=== PATIENT | female | born 1940 | race Caucasian/White ===

== ENCOUNTER 2017-08-29 12:26 | Observation (INO) | payer MEDICARE ==
[~2017-08-29] VITALS: Ht 157.5 cm; Wt 67.2 kg
[2017-08-29 12:32] VITALS: BP 194/97; PULSE 65; RESP 20; TEMP 97.7; O2SAT 98
[2017-08-29] MEDS ORDERED: PRED1 PO (12:43)
[2017-08-29] MEDS ORDERED: LEVO75TA3 PO (12:43)
[2017-08-29 12:53] VITALS: RESP 19; O2SAT 97
[2017-08-29] MEDS ORDERED: ASPIRIN 325 MG TAB PO ONE (13:00)
[2017-08-29] MEDS ORDERED: SODIUM CHLORIDE 0.9% FLUSH 10 ML FLUSH IVF PRN (13:00)
[2017-08-29 13:10] LABS: BASOPHIL # 0.1 TH/MM3 (0-0.2); BASOPHIL % 0.5 % (0.0-2.0); EOSINOPHIL # 0.4 TH/MM3 (0-0.4); EOSINOPHIL % 2.8 % (0.0-4.0); HEMATOCRIT 41.2 % (35.0-46.0); HEMOGLOBIN 13.7 GM/DL (11.6-15.3); LYMPH % 50.9 % (9.0-44.0); LYMPHOCYTE # 7.3 TH/MM3 (1.0-4.8); MEAN CELL VOLUME 82.4 FL (80.0-100.0); MEAN CORPUSCULAR HEMOGLOBIN 27.4 PG (27.0-34.0); MEAN CORPUSCULAR HGB CONC 33.3 % (32.0-36.0); MEAN PLATELET VOLUME 7.1 FL (7.0-11.0); MONO % 4.2 % (0.0-8.0); MONOCYTE # 0.6 TH/MM3 (0-0.9); NEUT % 41.6 % (16.0-70.0); PLATELET COUNT 240 TH/MM3 (150-450); RED CELL DISTRIBUTION WIDTH 13.9 % (11.6-17.2); WHITE BLOOD COUNT 14.4 TH/MM3 (4.0-11.0)
[2017-08-29 13:22] LABS: D-DIMER 0.37 MG/L FEU (0.00-0.50); PROTHROMBIN TIME - PATIENT 9.9 SEC (9.8-11.6)
[2017-08-29 13:35] LABS: ALBUMIN 3.8 GM/DL (3.4-5.0); ALT (GPT) 30 U/L (10-53); AST (GOT) 14 U/L (15-37); BICARBONATE 26.2 MEQ/L (21.0-32.0); BLOOD UREA NITROGEN 14 MG/DL (7-18); CALCIUM 8.1 MG/DL (8.5-10.1); CHLORIDE 109 MEQ/L (98-107); CREATININE 0.69 MG/DL (0.50-1.00); GLOMERULAR FILTRATION RATE 82 ML/MIN (>89); GLUCOSE,RANDOM 134 MG/DL (74-106); MAGNESIUM 2.1 MG/DL (1.5-2.5); SODIUM (NA) 142 MEQ/L (136-145)
[2017-08-29 13:37] LABS: LYMPHOCYTES 60 % (9-44); NEUTROPHIL # MANUAL DIFF 5.5 TH/MM3 (1.8-7.7); POLYS (SEG NEUTROPHILS) 38 % (16-70)
[2017-08-29 13:39] LABS: ALKALINE PHOSPHATASE 69 U/L (45-117); SMUDGE CELLS PRESENT PRESENT; TOTAL BILIRUBIN ADULT 0.5 MG/DL (0.2-1.0); TOTAL PROTEIN 6.8 GM/DL (6.4-8.2); TROPONIN I LESS THAN 0.02 NG/ML (0.02-0.05)
--- NOTE | 2017-08-29 13:39 | RADRPT ---
EXAM DATE/TIME: 08/29/2017 13:02 [facility] COMPARISON: No previous studies available for comparison. INDICATIONS : Chest pains with pressure left chest. MEDICAL HISTORY : Myocardial infarction. SURGICAL HISTORY : Coronary artery stent. ENCOUNTER: Initial ACUITY: 1 day PAIN SCORE: 9/10 LOCATION: Left chest FINDINGS: A single view of the chest demonstrates the lungs to be symmetrically aerated without evidence of mas s, infiltrate or effusion. The cardiomediastinal contours are unremarkable. Osseous structures are intact. CONCLUSION: No acute disease. Micky Howell MD FACR on August 29, 2017 at 13:37 Board Certified Radiologist. This report was verified electronically.
--- NOTE | 2017-08-29 13:40 | PD ---
HPI Chief Complaint: Chest Pain Time Seen by Provider: 12:38 Travel History International Travel<30 days: No Contact w/Intl Traveler<30days: No Traveled to known affect area: No History of Present Illness HPI 77-year-old female that presents to the ED for evaluation of right upper chest pain that she has had for the past 3 days. Per patient he feels like a pressure and comes and goes. Per patient he feels, like a spasm. Per patient she had this about 12 years ago and was diagnosed with a spasm and he feels somewhat similar but not completely. Per patient last time he went away. Per patient she is recently been treated for allergic rash from possible poison marion with prednisone and she has never had the prednisone before. Per patient is been feeling weird for the past 3 days. She cannot really tell me what she means by this other than she does not feel 100%. She does feel some shortness of breath when the pain gets severe but the pain only lasts a couple of minutes and then it goes away. She does tell me she has never had a stress test. She does not have a legal support assistant. She has a history of smoking. History of high blood pressure or cholesterol. She does have a history of thyroid disease. She tells me that for the most part she does not really take much medications as she prefers not to take anything. She currently states that she has no pain. Per patient he does feel like a burning sensation cannot like GERD except on the right side of the chest rather tender on the epigastric area where she usually gets it. No recent travel. No estrogen use. No recent surgeries. Has not seen anybody for this and her doctor actually told her to come here to get evaluated. Pain when he comes is 6 out of 10. PFSH Past Medical History Cardiovascular Problems: Yes Diminished Hearing: No Thyroid Disease: Yes Past Surgical History Cholecystectomy: Yes Gynecologic Surgery: Yes (LUMPECTOMY LEFT BREAST) Hysterectomy: Yes Social History Alcohol Use: Yes (OCCAISIONAL) Tobacco Use: No Substance Use: No Allergies-Medications (Allergen,Severity, Reaction): Coded Allergies: No Known Allergies (Verified , 03/30/15) Reported Meds & Prescriptions Reported Meds & Active Scripts Active Reported Levothyroxine (Levothyroxine Sodium) 75 Mcg Tab 75 Mcg PO DAILY Prednisone 1 Mg Tab 1 Mg PO DAILY Review of Systems Except as stated in HPI: all other systems reviewed are Neg Physical Exam Narrative GENERAL: SKIN: Warm and dry. HEAD: Atraumatic. Normocephalic. EYES: Pupils equal and round. No scleral icterus. No injection or drainage. ENT: No nasal bleeding or discharge. Mucous membranes pink and moist. Tongue is midline. No uvula deviation. NECK: Trachea midline. No JVD. CARDIOVASCULAR: Regular rate and rhythm. No murmurs, S3, S4. RESPIRATORY: No accessory muscle use. Clear to auscultation. Breath sounds equal bilaterally. GASTROINTESTINAL: Abdomen soft, non-tender, nondistended. Hepatic and splenic margins not palpable. MUSCULOSKELETAL: Extremities without clubbing, cyanosis, or edema. No obvious deformities. Full range of motion of the upper and lower extremities bilaterally. 2+ pulses bilaterally. NEUROLOGICAL: Awake and alert. No obvious cranial nerve deficits. Motor grossly within normal limits. Five out of 5 muscle strength in the arms and legs. Normal speech. PSYCHIATRIC: Appropriate mood and affect; insight and judgment normal. Data Data Last Documented VS Vital Signs Date Time Temp Pulse Resp B/P (MAP) Pulse Ox O2 Delivery O2 Flow Rate FiO2 08/29/17 12:53 19 97 Room Air 08/29/17 12:32 97.7 65 194/97 (129) Orders Orders Electrocardiogram (08/29/17 12:51) Ckmb (Isoenzyme) Profile (08/29/17 12:51) Complete Blood Count With Diff (08/29/17 12:51) Comprehensive Metabolic Panel (08/29/17 12:51) D-Dimer (08/29/17 12:51) Magnesium (Mg) (08/29/17 12:51) Prothrombin Time / Inr (Pt) (08/29/17 12:51) Act Partial Throm Time (Ptt) (08/29/17 12:51) Troponin I (08/29/17 12:51) Lipase (08/29/17 12:51) Chest, Single Ap (08/29/17 12:51) Ecg Monitoring (08/29/17 12:51) Bilateral Bp Monitoring (08/29/17 12:51) Iv Access Insert/Monitor (08/29/17 12:51) Oximetry (08/29/17 12:51) Aspirin (Aspirin) (08/29/17 13:00) Sodium Chloride 0.9% Flush (Ns Flush) (08/29/17 13:00) Admit Order (Ed Use Only) (08/29/17 14:20) Labs Laboratory Tests Test 08/29/17 12:55 White Blood Count 14.4 TH/MM3 Red Blood Count 5.00 MIL/MM3 Hemoglobin 13.7 GM/DL Hematocrit 41.2 % Mean Corpuscular Volume 82.4 FL Mean Corpuscular Hemoglobin 27.4 PG Mean Corpuscular Hemoglobin Concent 33.3 % Red Cell Distribution Width 13.9 % Platelet Count 240 TH/MM3 Mean Platelet Volume 7.1 FL Neutrophils (%) (Auto) 41.6 % Lymphocytes (%) (Auto) 50.9 % Monocytes (%) (Auto) 4.2 % Eosinophils (%) (Auto) 2.8 % Basophils (%) (Auto) 0.5 % Neutrophils # (Auto) 6.0 TH/MM3 Lymphocytes # (Auto) 7.3 TH/MM3 Monocytes # (Auto) 0.6 TH/MM3 Eosinophils # (Auto) 0.4 TH/MM3 Basophils # (Auto) 0.1 TH/MM3 CBC Comment AUTO DIFF Differential Total Cells Counted 100 Neutrophils % (Manual) 38 % Lymphocytes % 60 % Eosinophils % 2 % Neutrophils # (Manual) 5.5 TH/MM3 Differential Comment FINAL DIFF MANUAL Smudge Cells PRESENT Platelet Estimate NORMAL Platelet Morphology Comment NORMAL Prothrombin Time 9.9 SEC Prothromb Time International Ratio 1.0 RATIO Activated Partial Thromboplast Time 23.2 SEC D-Dimer Quantitative (PE/DVT) 0.37 MG/L FEU Blood Urea Nitrogen 14 MG/DL Creatinine 0.69 MG/DL Random Glucose 134 MG/DL Total Protein 6.8 GM/DL Albumin 3.8 GM/DL Calcium Level 8.1 MG/DL Magnesium Level 2.1 MG/DL Alkaline Phosphatase 69 U/L Aspartate Amino Transf (AST/SGOT) 14 U/L Alanine Aminotransferase (ALT/SGPT) 30 U/L Total Bilirubin 0.5 MG/DL Sodium Level 142 MEQ/L Potassium Level 4.3 MEQ/L Chloride Level 109 MEQ/L Carbon Dioxide Level 26.2 MEQ/L Anion Gap 7 MEQ/L Estimat Glomerular Filtration Rate 82 ML/MIN Total Creatine Kinase 56 U/L Troponin I LESS THAN 0.02 NG/ML Lipase 343 U/L MDM Medical Decision Making Medical Screen Exam Complete: Yes Emergency Medical Condition: Yes Medical Record Reviewed: Yes Interpretation(s) EKG shows sinus rhythm with no sign of acute ischemia and arrhythmia read by me and attending. Troponin and CK-MB negative. CBC & BMP Diagram 08/29/17 12:55 Total Protein 6.8, Albumin 3.8, Calcium Level 8.1 L, Magnesium Level 2.1, Alkaline Phosphatase 69, Aspartate Amino Transf (AST/SGOT) 14 L, Alanine Aminotransferase (ALT/SGPT) 30, Total Bilirubin 0.5 coags WNL, d-dimmer WNL. Differential Diagnosis Chest pain versus typical chest pain versus ACS versus medication side effect Narrative Course 77-year-old female that presents to the ED for evaluation of right-sided chest pain. Patient was properly examined and was found to have signs and symptoms concerning for ACS. Labs and imaging order. Labs and evaluations are unremarkable. Patient was given aspirin. Patient is completely symptomatic at this time. She has never had a stress test. Per my attending Dr. Darby evaluated the patient himself and recommends admission to the chest pain center. Patient was told this and agrees with plan. Patient was admitted to chest pain center by me. Procedures EKG Prior to Arrival: No Diagnosis Primary Impression: Chest pain in adult Admitting Information Admitting Physician Requests: Observation Moose Lopez August 29, 2017 13:40
[2017-08-29] MEDS ORDERED: RESP: ALBUTEROL 2.5 MG/IPRATROPIUM 0.5 MG NEB (PRN) INH (15:15)
[2017-08-29] MEDS ORDERED: ALPRAZolam 0.25 MG TAB PO PRN (15:15)
[2017-08-29] MEDS ORDERED: ACETAMINOPHEN/HYDROcodone 325 MG/7.5 MG TAB PO PRN (15:15)
[2017-08-29] MEDS ORDERED: ACETAMINOPHEN 500 MG CPLT PO PRN (15:15)
[2017-08-29] MEDS ORDERED: ONDANSETRON HCL 4 MG/2 ML VIAL IV PUSH PRN (15:15)
[2017-08-29] MEDS ORDERED: cloNIDine HCL 0.1 MG TAB PO PRN (15:15)
[2017-08-29 15:44] VITALS: BP 202/80; PULSE 60; RESP 16; O2SAT 97
--- NOTE | 2017-08-29 15:50 | HHI.HP ---
[facility] Primary Care Physician Constantine Oneal MD, PhD Chief Complaint Chest pain History of Present Illness This is a 77-year-old female the presents to ED via private vehicle with a complaint of developing a right-sided chest discomfort that she describes as a squeezing. It began yesterday while she was standing at [employer] and lasted about 10 minutes. Discomfort was an 8 out of 10. No associated shortness of breath, nausea, or diaphoresis. The discomfort then recurred this morning at 9: 00 while at home. Same area in the right side of her chest. This time is rated as a 5 out of 10. However this time it lasted longer. Lasted about 2 or 3 hours. She was also diaphoretic. No nausea or shortness of breath. Denies history of CAD. Cannot recall any cardiac catheterization or stress testing. Has history of hypertension but states she has never been placed on medication. Also history of hyperlipidemia but never medicated. History of chronic lymphocytic leukemia but states she has been in remission for 10 years. States that her lymphocytes and white blood cells are elevated in the ED today. Believes it may be related to taking prednisone. States she is on prednisone secondary to poison marion. Denies diabetes. Review of Systems General: Patient denies fevers, chills, and recent travel. HEENT: Patient denies headache, sore throat, difficulty swallowing. Cardiovascular: Has the chest discomfort as mentioned above. Denies sensation of heart beating rapidly or irregularly. No syncope. She was diaphoretic this morning. Respiratory: Denies shortness of breath or inspirational chest discomfort. Denies coughing wheezing or hemoptysis. GI: Patient denies nausea, vomiting, diarrhea, abdominal pain, bloody stools. Musculoskeletal: Patient denies joint pain or edema. Denies calf pain or edema. Neurovascular: Patient denies numbness, tingling, weakness in extremities. Denies headache. Endocrine: Denies polyuria and polydipsia. Hematologic: Denies easy bruising. Skin: Denies rash or itching. Past Family Social History Allergies: Coded Allergies: No Known Allergies (Verified Allergy, Unknown, 08/29/17) Past Medical History Hypertension and hyperlipidemia however states she was never prescribed medication. Then states that her physicians knew that she never wanted to be placed on medication to begin with. Hypothyroidism. Chronic lymphocytic leukemia states she has been in remission for [address] Duque on an annual basis. Denies diabetes and known CAD. Past Surgical History Hysterectomy, cholecystectomy, and benign left breast lumpectomy. Reported Medications Reported Meds & Active Scripts Active Reported Levothyroxine (Levothyroxine Sodium) 75 Mcg Tab 75 Mcg PO DAILY Prednisone 1 Mg Tab 1 Mg PO DAILY Active Ordered Medications Current Medications Medications (Trade) Dose Ordered Sig/Renuka Route Start Time Stop Time Status Last Admin (NS Flush) 2 ml UNSCH PRN IVF 08/29/17 13:00 (Tylenol) 500 mg Q4H PRN PO 08/29/17 15:15 ([place] 7.5-325 Mg) 1 tab Q4H PRN PO 08/29/17 15:15 (Zofran Inj) 4 mg Q6H PRN IV PUSH 08/29/17 15:15 (Protonix) 40 mg DAILY PO 08/29/17 17:00 (Aspirin) 325 mg DAILY PO 08/30/17 09:00 (Xanax) 0.25 mg Q8H PRN PO 08/29/17 15:15 (Toradol Inj) 15 mg ONCE ONCE IVP 08/29/17 16:00 08/29/17 16:01 (Duoneb Neb) 1 ampule Q4HR NEB PRN INH 08/29/17 15:15 (Catapres) 0.1 mg Q4H PRN PO 08/29/17 15:15 Family History Denies family history of CAD. Social History Quit smoking 40 years ago. Prior to that she smoked on average 1 pack of cigarettes daily for 20 years. Denies alcohol or illicit drug use. Physical Exam Vital Signs Vital Signs Date Time Temp Pulse Resp B/P (MAP) Pulse Ox O2 Delivery O2 Flow Rate FiO2 08/29/17 12:53 19 97 Room Air 08/29/17 12:32 97.7 65 20 194/97 (129) 98 Physical Exam GENERAL: This is a well-nourished, well-developed patient, in no apparent distress. Patient speaks in clear complete sentences. Patient is pleasant. HEENT: Head is atraumatic and normocephalic. Neck is supple without lymphadenopathy and trachea is midline. No JVD or carotid bruits. CARDIOVASCULAR: Regular rate and rhythm without murmurs, gallops, or rubs. RESPIRATORY: Clear to auscultation. Breath sounds equal bilaterally. No wheezes , rales, or rhonchi. Chest wall is tender just right of the sternum. No use of accessory muscles. GASTROINTESTINAL: Abdomen is nontender, nondistended. Abdomen soft. No obvious pulsatile mass or bruit. No CVA tenderness. Strong femoral pulses bilaterally. Normal bowel sounds in all quadrants. MUSCULOSKELETAL: Patient is moving upper and lower extremities freely. No calf tenderness or edema, no Homans sign. Strong pulses in upper and lower extremities. NEUROLOGICAL: Patient is alert and oriented. Cranial nerves 2-12 are grossly intact. No focal deficits and speech is clear. SKIN: No rash and turgor is normal. Laboratory Laboratory Tests Test 08/29/17 12:55 White Blood Count 14.4 Red Blood Count 5.00 Hemoglobin 13.7 Hematocrit 41.2 Mean Corpuscular Volume 82.4 Mean Corpuscular Hemoglobin 27.4 Mean Corpuscular Hemoglobin Concent 33.3 Red Cell Distribution Width 13.9 Platelet Count 240 Mean Platelet Volume 7.1 Neutrophils (%) (Auto) 41.6 Lymphocytes (%) (Auto) 50.9 Monocytes (%) (Auto) 4.2 Eosinophils (%) (Auto) 2.8 Basophils (%) (Auto) 0.5 Neutrophils # (Auto) 6.0 Lymphocytes # (Auto) 7.3 Monocytes # (Auto) 0.6 Eosinophils # (Auto) 0.4 Basophils # (Auto) 0.1 CBC Comment AUTO DIFF Differential Total Cells Counted 100 Neutrophils % (Manual) 38 Lymphocytes % 60 Eosinophils % 2 Neutrophils # (Manual) 5.5 Differential Comment FINAL DIFF MANUAL Smudge Cells PRESENT Platelet Estimate NORMAL Platelet Morphology Comment NORMAL Prothrombin Time 9.9 Prothromb Time International Ratio 1.0 Activated Partial Thromboplast Time 23.2 D-Dimer Quantitative (PE/DVT) 0.37 Blood Urea Nitrogen 14 Creatinine 0.69 Random Glucose 134 Total Protein 6.8 Albumin 3.8 Calcium Level 8.1 Magnesium Level 2.1 Alkaline Phosphatase 69 Aspartate Amino Transf (AST/SGOT) 14 Alanine Aminotransferase (ALT/SGPT) 30 Total Bilirubin 0.5 Sodium Level 142 Potassium Level 4.3 Chloride Level 109 Carbon Dioxide Level 26.2 Anion Gap 7 Estimat Glomerular Filtration Rate 82 Total Creatine Kinase 56 Troponin I LESS THAN 0.02 Lipase 343 Result Diagram: 08/29/17 1255 08/29/17 1255 Imaging Last 24 hours Impressions Chest X-Ray 08/29/17 1251 Signed Impressions: Service Date/Time: Tuesday, August 29, 2017 13:02 - CONCLUSION: No acute disease. Micky Howell MD FACR Course Initial EKG is sinus rhythm rate of [address] segment depressions or elevations. Caprini VTE Risk Assessment Caprini VTE Risk Assessment: Mod/High Risk (score >= 2) Caprini Risk Assessment Model Point Value = 1 Point Value = 2 Point Value = 3 Point Value = 5 Age 41-60 Minor surgery BMI > 25 kg/m2 Swollen legs Varicose veins or History of unexplained or recurrent spontaneous Oral contraceptives or hormone replacement Sepsis (< 1 month) Serious lung disease, including pneumonia (< 1 month) Abnormal pulmonary function Acute myocardial infarction Congestive heart failure (< 1 month) History of inflammatory bowel disease Medical patient at bed rest Age 61-74 Arthroscopic surgery Major open surgery (> 45 min) Laparoscopic surgery (> 45 min) Malignancy Confined to bed (> 72 hours) Immobilizing plaster cast Central venous access Age >= 75 History of VTE Family history of VTE Factor V Leiden Prothrombin [id number] Lupus anticoagulant Anticardiolipin antibodies Elevated serum homocysteine Heparin-induced thrombocytopenia Other congenital or acquired thrombophilia Stroke (< 1 month) Elective arthroplasty Hip, pelvis, or leg fracture Acute spinal cord injury (< 1 month) Prophylaxis Regimen Total Risk Factor Score Risk Level Prophylaxis Regimen 0-1 Low Early ambulation 2 Moderate Order ONE of the following: *Sequential Compression Device (SCD) *Heparin 5000 units SQ BID 3-4 Higher Order ONE of the following medications: *Heparin 5000 units SQ TID *Enoxaparin/Lovenox 40 mg SQ daily (WT < 150 kg, CrCl > 30 mL/min) *Enoxaparin/Lovenox 30 mg SQ daily (WT < 150 kg, CrCl > 10-29 mL/min) *Enoxaparin/Lovenox 30 mg SQ BID (WT < 150 kg, CrCl > 30 mL/min) AND/OR *Sequential Compression Device (SCD) 5 or more Highest Order ONE of the following medications: *Heparin 5000 units SQ TID (Preferred with Epidurals) *Enoxaparin/Lovenox 40 mg SQ daily (WT < 150 kg, CrCl > 30 mL/min) *Enoxaparin/Lovenox 30 mg SQ daily (WT < 150 kg, CrCl > 10-29 mL/min) *Enoxaparin/Lovenox 30 mg SQ BID (WT < 150 kg, CrCl > 30 mL/min) AND *Sequential Compression Device (SCD) Assessment and Plan Assessment and Plan * Chest pain: Patient will continue to have serial cardiac enzymes and EKGs for ruling out purposes. She will be seen by Dr. Alex Singleton of cardiology in the chest pain center. She will have a Lexiscan in the morning if she rules out. Patient be discharged home if her stress test is nonischemic with instructions to follow-up with PCP and return to ED for interval issues. Blood pressure was elevated initially in the ED. We are awaiting a repeat BP check. Patient is reluctant at this time to be started on blood pressure medication. This will be further discussed with Dr. Singleton. There will be as needed Catapres in the meantime. * Hypertension: Patient states she was never prescribed medication and is reluctant to start this. This will be discussed with Dr. Singleton. * Hyperlipidemia: Patient also states she was never started on medication. She will need to discuss this with her PCP. * Hypothyroidism: Continue medication. * History of chronic lymphocytic leukemia: White blood cell count and lymphocyte count were elevated, patient is on steroids. Patient will have this further evaluated with PCP after completing steroids which she states today was the last dose. Patient is stable at this time. She is agreeable to this plan. Magdiel Almonte August 29, 2017 15:50
[2017-08-29] MEDS ORDERED: KETOROLAC TROMETHAMINE 30 MG/ML (IVP) VIAL IVP ONE (16:00)
[2017-08-29 16:52] VITALS: BP 168/74; PULSE 64; RESP 15; O2SAT 97
[2017-08-29] MEDS: LEVOTHYROXINE SODIUM 75 MCG TAB PO SCH (17:00)
[2017-08-29 17:07] LABS: TROPONIN I LESS THAN 0.02 NG/ML (0.02-0.05)
[2017-08-29] MEDS: amLODIPine BESYLATE 5 MG TAB PO SCH (17:07)
[2017-08-29] MEDS: PANTOPRAZOLE SOD 40 MG DELAYED RELEASE TAB PO SCH (17:08)
[2017-08-29 19:46] LABS: TROPONIN I LESS THAN 0.02 NG/ML (0.02-0.05)
[2017-08-29 20:45] VITALS: BP 158/67; PULSE 58; RESP 16; TEMP 98.1; O2SAT 97
[2017-08-29 23:47] VITALS: BP 155/66; PULSE 69; RESP 16; TEMP 97.6; O2SAT 98
[2017-08-30] VITALS: PULSE 49
[2017-08-30 04:23] VITALS: BP 124/74; PULSE 60; RESP 16; TEMP 97.9; O2SAT 99
[2017-08-30] MEDS: LEVOTHYROXINE SODIUM 75 MCG TAB PO SCH (05:19)
[2017-08-30 07:36] VITALS: BP 151/67; PULSE 57; RESP 16; TEMP 97.7; O2SAT 98
[2017-08-30 08:00] VITALS: PULSE 50
[2017-08-30] MEDS: PANTOPRAZOLE SOD 40 MG DELAYED RELEASE TAB PO SCH (08:30)
[2017-08-30] MEDS: amLODIPine BESYLATE 5 MG TAB PO SCH (08:30)
[2017-08-30] MEDS ORDERED: ASPIRIN 325 MG TAB PO SCH (09:00)
[2017-08-30] MEDS ORDERED: REGADENOSON INJ 0.4 MG/5 ML SYR ONE (09:35)
--- NOTE | 2017-08-30 11:15 | RADRPT ---
EXAM DATE/TIME: 08/30/2017 08:55 [facility] COMPARISON: No previous studies available for comparison. INDICATIONS : Chest pain with dyspnea. Angina. DOSE: 27.3 mCi Tc99m Myoview at stress. 8.2 mCi Tc99m Myoview at rest. 0.4 mg Lexiscan STRESS SYMPTOMS: Heart racing, dyspnea, and headache. EJECTION FRACTION: > 70% MEDICAL HISTORY : Hypertension. SURGICAL HISTORY : Hysterectomy. Appendectomy. Cholecystectomy. ENCOUNTER: Initial ACUITY: 3 days PAIN SCALE: 4/10 LOCATION: chest TECHNIQUE: The patient underwent pharmacologic stress with infusion of prescribed dose. Continuous ECG tracing was monitored during stress. Gated SPECT imaging was performed after stress and conventional SPECT i maging was performed at rest. The examination was performed on a SPECT/CT scanner, both attenuation and non-corrected datasets were reviewed. FINDINGS: DISTRIBUTION: The maximum perfused segment at stress is in the anteroseptal wall. PERFUSION STUDY: The pattern of perfusion at stress is within normal limits. GATED STUDY: There is intact wall motion and thickening without hypokinetic or dyskinetic segments. CONCLUSION: 1. No significant reversibility to suggest ischemia. 2. Normal ejection fraction of greater than 70% RISK CATEGORY: Low (<1% Annual Mortality Rate) Sean Dejesus MD on August 30, 2017 at 11:07 Board Certified Radiologist. This report was verified electronically.
--- NOTE | 2017-08-30 11:27 | HHI.DCPOC ---
Discharge Care Plan Diagnosis: (1) Chest pain (2) Hypertension (3) Hyperlipidemia (4) Hx of chronic lymphocytic leukemia Goals to Promote Your Health DISCUSS ELEVATED LYMPHOCYTES AND WBC WITH YOUR PHYSICIAN. * To prevent worsening of your condition and complications * To maintain your health at the optimal level Directions to Meet Your Goals Take your medications as prescribed Follow your dietary instruction Follow activity as directed Keep your appointments as scheduled Take your immunizations and boosters as scheduled If your symptoms worsen call your PCP, if no PCP go to Urgent Care Center or Emergency Room Smoking is Dangerous to Your Health. Avoid second hand smoke Call the 24-hour hour crisis hotline for domestic abuse at Magdiel Almonte August 30, 2017 11:27
[2017-08-30] MEDS ORDERED: AMLO5TAB2 PO (11:28)
--- NOTE | 2017-08-30 13:41 | TR ---
Date Performed: 08/30/2017 Time Performed: 09:39:00 DOCTOR: Charbel Feng DRUG LIST: CLINICAL HISTORY: REASON FOR TEST: REASON FOR ENDING: OBSERVATION: CONCLUSION: COMMENTS: Lexiscan stress test was performed under standard four minute protocol. Radionuclide was injected one minute prior to ending the test. No electrocardiographic abormalities were present t o suggest ischemia. Nuclear imaging and interpretation are pending.
--- NOTE | 2017-08-30 14:16 | EKG ---
Date Performed: 08/29/2017 Time Performed: 19:07:23 PTAGE: 77 years EKG: SINUS BRADYCARDIA WITH MARKED SINUS ARRHYTHMIA MODERATE ST DEPRESSION ABNORMAL ECG Since PREVIOUS TRACING , no significant change noted DOCTOR: Charbel Feng Interpretating Date/Time 08/30/2017 14:14:58
--- NOTE | 2017-08-30 14:17 | EKG ---
Date Performed: 08/29/2017 Time Performed: 15:57:06 PTAGE: 77 years EKG: SINUS BRADYCARDIA MINIMAL ST DEPRESSION BORDERLINE ECG PREVIOUS TRACING : 08/29/2017 12.43 Since previous tracing, no significant change noted DOCTOR: Charbel Feng Interpretating Date/Time 08/30/2017 14:16:17
--- NOTE | 2017-08-30 14:21 | EKG ---
Date Performed: 08/29/2017 Time Performed: 12:43:54 PTAGE: 77 years EKG: Sinus rhythm MODERATE ST DEPRESSION ABNORMAL ECG PREVIOUS TRACING : 12/24/2007 10.27 Since previous tracing, no significant change noted DOCTOR: Charbel Feng Interpretating Date/Time 08/30/2017 14:21:20
== END 2017-08-30 18:37 | disposition home or self-care (01) ==
LOC: NEPE 12:26 → NEDA 14:21 → NEPGCP 19:00
PROVIDERS: ADMIT Internal Medicine Cardiovascular Disease; ATTEND Internal Medicine Cardiovascular Disease
DX: R07.89 Other chest pain (principal); I10 Essential (primary) hypertension; E78.5 Hyperlipidemia, unspecified; E03.9 Hypothyroidism, unspecified; L23.7 Allergic contact dermatitis due to plants, except food; R00.1 Bradycardia, unspecified; R94.31 Abnormal electrocardiogram [ECG] [EKG]; C91.11 Chronic lymphocytic leukemia of B-cell type in remission; Z79.899 Other long term (current) drug therapy; Z87.891 Personal history of nicotine dependence
CPT/HCPCS: 71045; 78452; 80053; 82550; 83690; 83735; 84484; 85007; 85027; 85379; 85610; 85730; 93005; 93017; 99285; A9502; G0378; J2785